=== PATIENT | female | born 1995 | race Two or more races ===

== ENCOUNTER 2016-07-25 22:36 | Emergency (ER) | payer MEDICAID, OTHER ==
[~2016-07-25] VITALS: Ht 160 cm; Wt 65.8 kg
[2016-07-26 01:44] VITALS: BP 121/56
== END 2016-07-26 02:06 | disposition home or self-care (01) ==
LOC: ER 22:37
DX: S46.819A Strain of other muscles, fascia and tendons at shoulder and upper arm level, unspecified arm, initial encounter (principal); R51 Headache; V43.52XA Car driver injured in collision with other type car in traffic accident, initial encounter; Y93.89 Activity, other specified; Y99.8 Other external cause status; Y92.89 Other specified places as the place of occurrence of the external cause